=== PATIENT | female | born 1955 | race Caucasian/White ===

== ENCOUNTER 2017-12-24 12:30 | Inpatient (IN) | payer MEDICARE, MEDICAID ==
[~2017-12-24] VITALS: Ht 160 cm; Wt 75.3 kg
--- NOTE | ~2017-12-24 | PR ---
[place], [place] PROGRESS NOTE NAME: [facility]Z [facility]ERVANTES [facility] [id number] UNIT #: [id number] ROOM: 519 DOCTOR: ALEXANDR LATHAM MD,SELENA BIRTHDATE: [birth year] DOS: 12/28/2017 SUBJECTIVE: The patient noted comfortable at this time, resting, denies symptoms of chest pain, coughing, or sputum expectoration. She has not been noted any symptoms of fever or chills. Plan for possibility of discharge home today. The patient remains asymptomatic. OBJECTIVE: VITAL SIGNS: For the patient which has been recorded showed normal temperature, respiratory rate 20, heart rate 60-85, blood pressure 154/65. Pulse ox saturation on room air was 99% saturation. HEENT: Chronic obesity. NECK: Supple. CARDIOVASCULAR: S1, S2 audible. LUNGS: Clear. ABDOMEN: Soft, nontender. LABORATORY DATA: CT of the chest completed yesterday ordered by the attending was noted as normal study. CBC of the patient was noted normal today. The CMP of the patient was noted as normal. IMPRESSION: 1. Resolving shortness of breath. 2. Exacerbation of chronic obstructive pulmonary disease, responding to current treatment. 3. History of nicotine dependence. PLAN OF TREATMENT: The patient could be considered from discharge today on oral medications and outpatient follow up strongly suggested. The patient was encouraged absolute tobacco use and tobacco cessation was done. SELENA STRANGE MD CM:PNTRANS [id number] SELENA LATHAM MD 01/13/18 0834 interface
--- NOTE | ~2017-12-24 | EKG ---
[place], [place] ELECTROCARDIOGRAM REPORT NAME: TAZ CERVANTES UNIT #: [id number] ROOM: 519 DOCTOR: NATIVIDAD DRAFT REPORT BIRTHDATE: [birth year] [facility] Test Date: 2017-12-24 Test Time: 13:11:04 Pat Name: TAZ CERVANTES Department: Room: 519 Gender: F [employer]: : 1955 Requested By: JOEL GILES Order Number: [id number] Reading MD: Lencho Bryant MD Measurements Intervals [place] Rate: 103 P: 28 [place]: 143 QRS: -88 QRSD: 92 T: 52 QT: 361 QTc: 473 Interpretive Statements Sinus tachycardia Inferior infarct, old Lateral leads are also involved Electronically Signed On 12-29-2017 13:46:14 PDT by Lencho Bryant MD CM:EKGRPT:ELECTROCARDIOGRAM REPORT [id number] JOEL HENSON DRAFT REPORT JOEL REDMAN
--- NOTE | ~2017-12-24 | CON ---
[place], [place] REPORT OF CONSULTATION [id number] UNIT #: [id number] ROOM: 519 DOCTOR: LORE CHICAS MD BIRTHDATE: [birth year] DOS: 12/26/2017 CARDIOLOGY CONSULTATION REASON FOR CONSULTATION: Dyspnea, heart murmur and abnormal electrocardiogram. HISTORY OF PRESENT ILLNESS: The patient was seen at her bedside today, 12/26/2017, to evaluate complaints of worsening dyspnea. The patient is a 62-year-old woman who denies any previous history of heart disease. She does have risk factors of hypertension and a family history of coronary artery disease, but denies ever having a history of heart attack, stroke or chest pain. She does note that for the last several months, she has had worsening dyspnea on exertion. She has also complained of some dizziness, by which she does seem to mean true vertigo. Recently, she has had a flea infestation in her home. She has used multiple flea bombs without full success. Since she has been using these, she has noticed a dramatic increase in her dyspnea and therefore came to the Emergency Room on 12/24/2017 for evaluation. At that time, she complained of "not feeling right" and worsening dyspnea with decreased energy. On admission, she was noted to have an elevation in her lactic acid level. She was not anemic. Electrolytes were normal. Her troponin on admission was normal. A chest x-ray showed a normal cardiac silhouette without any evidence for infiltrates. Her electrocardiogram showed a right bundle-branch block and inferior Q-waves, so a Cardiology consultation was requested. PAST MEDICAL HISTORY: Includes: 1. Essential hypertension. 2. Chronic back pain with spinal stenosis. 3. History of urinary tract infections. 4. History of hysterectomy, tonsillectomy and cholecystectomy. 5. senior care and ongoing tobacco abuse. The patient currently smokes a half pack of cigarettes a day. MEDICATIONS PRIOR TO ADMISSION: Atorvastatin 20 mg daily, baclofen 20 mg t.i.d. as needed for back spasms, hydrochlorothiazide 12.5 mg daily, hydrocodone with acetaminophen q.i.d. p.r.n., lisinopril 10 mg daily and Lyrica 150 mg b.i.d. ALLERGIES: She lists allergies to BEE STINGS, PENICILLIN, AMOXICILLIN, ERYTHROMYCIN, LATEX, TETRACYCLINE and CEPHALEXIN. FAMILY HISTORY: The patient knows nothing about her father or his family's history. She states that many members of her mother's family have had heart disease. Her grandfather was apparently one of the first people to have bypass surgery and she states that he in his 40s, so apparently he did have heart disease at a young age. Her mother has "heart issues," but the patient does not know details. Her mother is still alive at age 79. There is no diabetes or stroke in the family. REVIEW OF SYSTEMS: The patient denies diplopia or loss of vision. She denies focal weakness. She has had "dizziness" which sounds like vertigo. She [place], [place] REPORT OF CONSULTATION NAME: TAZ CERVANTES UNIT #: [id number] ROOM: [facility] DOCTOR: LORE CHICAS MD BIRTHDATE: [birth year] denies fevers, chills, sweats or recent weight change. Her appetite has been poor. She does admit to lack of interest and anhedonia, poor appetite and depressed, feelings. She denies nausea or vomiting, but she has not had much of an appetite. She denies fevers, chills, sweats or recent weight change. She denies hemoptysis or hematemesis. She does have an occasional cough, which is nonproductive. She denies change in bowel or bladder habits. She denies blood in her stools or urine. She denies any skin rashes except for multiple flea bites on her lower extremities. She denies heat or cold intolerance and denies polyuria or polydipsia. Remainder of the review of systems is negative except as noted above. SOCIAL HISTORY: The patient lives alone. She does not consume alcohol. She does smoke a half pack of cigarettes a day. PHYSICAL EXAMINATION: GENERAL: The patient is a well-nourished white female who is awake, alert and oriented. VITAL SIGNS: Pulse is 80 and regular, blood pressure is 140/84. She is afebrile. She weighs 75.3 kilograms and has body mass index of 29.4. HEENT: Normocephalic and atraumatic. Extraocular muscles are intact. Sclerae are clear. Pupils equal, round and react to light. The oral mucosa is moist. Tongue is midline. NECK: Supple. She has no jugular distention or hepatojugular reflux. Carotids are full. There are no bruits. She has no neck or supraclavicular masses and no thyromegaly. LUNGS: Respirations are unlabored. Her chest is clear to auscultation and percussion. I heard no wheezes or rales. She had mild expiratory prolongation. She had no chest wall tenderness and no presacral edema. HEART: Had a regular rhythm. She had a soft fourth heart sound, but no third heart sound. She has a grade 2/6 systolic ejection murmur along the left sternal border, which radiates toward the base, but not into the neck. The second heart sound is well preserved. There are no apical murmurs and no diastolic murmurs. ABDOMEN: Obese, but otherwise benign, without masses, organomegaly, bruits or tenderness. EXTREMITIES: Showed no edema. She does have some excoriations on her feet. Pedal pulses are easily palpated bilaterally. RADIOLOGY: I reviewed her electrocardiogram, which showed sinus tachycardia with a right bundle-branch block and possible old inferior wall myocardial infarction along with poor precordial R-wave progression. I also reviewed her chest x-ray, which showed normal cardiac silhouette, no infiltrates and no vascular congestion. LABORATORY DATA: Hemoglobin is 14.9, white count 10,000, platelet count 269,000. Sodium 141, potassium 4.4, chloride 108, CO2 of 24, BUN 17, creatinine 0.7. Troponin was normal. TSH was normal. Total cholesterol is 147, HDL is 50, LDL is 78. IMPRESSION: [place], [place] REPORT OF CONSULTATION NAME: TAZ CERVANTES UNIT #: [id number] ROOM: [facility] DOCTOR: LORE CHICAS MD BIRTHDATE: [birth year] 1. Progressive dyspnea with recent exacerbation. The patient is a smoker and it is likely that this does represent chronic obstructive pulmonary disease with acute exacerbation, possibly brought on by inhaled insecticides. She shows no signs of an acute coronary event. 2. Cigarette abuse. 3. Heart murmur, which sounds benign. 4. Right bundle-branch block and possible inferior wall myocardial infarction on her electrocardiogram. PLAN: At this time, I think that it is most likely that her breathing is due to pulmonary problems. We will be checking an echocardiogram to look for wall motion abnormalities to see if there is any evidence for previous infarction. She does not have any chest pain or elevation in troponin and if her echocardiogram is normal, then I would suggest further pulmonary workup and aggressive pulmonary management along with immediate cigarette cessation. We will follow the patient with her other physicians and I thank the hospitalist doctors for asking our advice regarding her care. LORE CHICAS MD CM:CONSTR:REPORT OF CONSULTATION 1016 12/26/17 1648 interface
--- NOTE | ~2017-12-24 | CON ---
[place], [place] REPORT OF CONSULTATION NAME: TAZ CERVANTES [facility] #: [id number] UNIT #: [id number] ROOM: 519 DOCTOR: SELENA HANNON MD BIRTHDATE: [birth year] DOS: 12/27/2017 CONSULTATION REQUESTED BY: Hospitalist services. REASON FOR CONSULTATION: Recurrent symptoms of shortness of breath. HISTORY OF PRESENT ILLNESS: This is a 62-year-old white female patient, unknown to me from the past. The patient has been in hospital in 12/24/2017. She reported symptoms of increased shortness of breath, chest congestion. The cough has been noted nonproductive. She was also reported symptoms of wheezing and chest tightness. The patient denies any symptoms of fever or chills. The patient stated she had been exposed to some kind of chemicals as she bombed her apartment for the management of the fleas in the apartment. The patient reported symptoms of worsening of shortness of breath upon assessment in the Emergency Room and the patient was noted lactic acidosis on admission as well. She denies any symptoms of fever or chills. She has been currently treated for patient. Cardiology assessment was done for this patient as well early for the patient suggestive of pulmonary disease. The patient stated since hospitalization, she has been noted progressive resolution, reduction of respiratory symptoms, but symptom resolution was noted incomplete. She was also reported symptoms of fatigue on presentation. REVIEW OF SYSTEMS: CONSTITUTIONAL: Fatigue and tiredness noted symptoms of fever or chills. EYES: Denies burning, redness, or tenderness. EARS, NOSE, THROAT SYMPTOMS: Denies sore throat, hoarseness, otalgia, postnasal drainage or epistaxis. CARDIOVASCULAR: Denied angina pain, edema, pain in lower extremity. GASTROINTESTINAL: Dysphagia, nausea, vomiting, diarrhea, abdominal pain, hematemesis, melena, or hematochezia. GENITOURINARY: No dysuria, suprapubic pain, hematuria. MUSCULOSKELETAL: No acute joint pain, redness, tenderness. SKIN: No lesions or rashes. Remaining systems were reviewed. They were noted all negative. PAST MEDICAL HISTORY: 1. The patient with known history of chronic nicotine abuse. 2. Essential hypertension. 3. History of peripheral neuropathy. 4. Spinal stenosis. PAST SURGICAL HISTORY: 1. Reported. 2. Hysterectomy. 3. Tonsillectomy. 4. Cholecystectomy. SOCIAL HISTORY: The patient currently , has 2 children. Denies history of alcohol use, illicit drug use. Tobacco is noted with a pack of [place], [place] REPORT OF CONSULTATION NAME: TAZ CERVANTES UNIT #: [id number] ROOM: [facility] DOCTOR: ALEXANDR LATHAM MD,[facility] BIRTHDATE: [birth year] cigarettes a day previously, currently smoking half a pack of cigarettes, for the past several weeks this patient attempted to stop smoking of cigarettes per day. FAMILY HISTORY: The patient's father . Medical history unknown. Mother is living 79-year-old without any known medical illnesses. HOME MEDICATIONS: The patient, listed use of nortriptyline, Claritin, etodolac, gabapentin, Zanaflex and Effexor. The patient is also taking Macrodantin for the medical management. Recent urinary tract infection. DRUG ALLERGIES: Noted to have allergy that include: 1. PENICILLINS. 2. AZITHROMYCIN. 3. TETRACYCLINE. 4. KEFLEX. PHYSICAL EXAMINATION: GENERAL: This is a 62-year-old white female patient who has been currently noted awake and alert this morning, sitting on the bed. VITAL SIGNS: Height 5 feet 3 inches, weight 166 pounds, which has been recorded showed the temperature noted normal since admission, respiratory rate range between 18-20, heart rate of 87-70, blood pressure 140-180 to 155/91. Pulse oxygen saturation on room air was 95% saturation. HEENT: Head was atraumatic. Eyes nonicterus. NECK: Supple. CARDIOVASCULAR: S1, S2 is audible. LUNGS: Noted clear to auscultation this morning. ABDOMEN: Soft, nontender, bowel sounds present. EXTREMITIES: Without any acute edema. LABORATORY DATA: The patient's CMP today were noted normal BUN and creatinine. The CBC of patient noted normal. The chest x-ray, 2-view, done for this patient on 12/25/2017 were normal. Admission from the emergency room was also noted normal. Blood culture, no bacterial growth. IMPRESSION: The patient who has been noted with current acute exacerbation of chronic obstructive pulmonary disease, possibly new onset. History of tobacco use, possibly exacerbated by some chemical patient at home can be completely excluded by the predominant cause most likely be considered. He has a tobacco use, resulting in acute exacerbation. There were no signs of acute bacterial infection. PLAN OF MANAGEMENT: The patient could be considered home discharge, tapering dose of prednisone may not require any antibiotics. Bronchodilators should be administered. Counseling about tobacco cessation done in detail for the patient. Outpatient assessment suggested post-discharge for comprehensive assessment of chronic obstructive pulmonary disease. [place], [place] REPORT OF CONSULTATION NAME: TAZ CERVANTES UNIT #: [id number] ROOM: [facility] DOCTOR: SELENA HANNON MD BIRTHDATE: [birth year] SELENA STRANGE MD CM:CONSTR:REPORT OF CONSULTATION 1504 01/13/18 0833 interface
--- NOTE | ~2017-12-24 | CON ---
[place], [place] REPORT OF CONSULTATION NAME: TAZ CERVANTES [facility] #: [id number] UNIT #: [id number] ROOM: 519 DOCTOR: PHD [place] HERNAN BIRTHDATE: [birth year] DOS: 12/25/2017 HISTORY OF PRESENT ILLNESS: The patient is a 62-year-old female referred by the hospitalist with concerns for depression. She had 3 kittens following a flea infestation and treatment at her home. At the present time, the patient is on the 5th floor at [facility]. SOCIAL HISTORY: The patient is and lives alone. She has 3 daughters. Her son in his 20s due to diabetes. 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 She denied alcohol and illegal drug use. Tobacco use was reported as 1 pack per day. PAST MEDICAL HISTORY: Hypertension, neuropathy, spinal stenosis. MEDICATIONS: Antivert, Esidrix, Zestril, Nicoderm, Solu-Medrol, Lovenox, Lipitor, Lioresal, DuoNeb, Zofran, Lyrica, Wyn[place]. PHYSICAL EXAMINATION: The patient was lying comfortably in bed, in no apparent distress. She was awake, alert and oriented. Eye contact and social skills were appropriate. She was cooperative with evaluation. The patient reported grief over the loss of her 3 kittens. Mood was depressed and affect was tearful. She firmly denied suicidal ideation, plan, and intent. She states that she had been doing relatively well emotionally prior to this and has a close relationship with one of her daughters who lives in town. Speech was within normal limits with respect to rhythm, rate, volume and tone. Expressive and receptive language appeared within normal limits on a conversational basis. Thought process and content were within normal limits. Insight and judgment appeared fair. Discussed the patient's thoughts and interpretations of the events leading to the kittens , utilized CBT and supportive therapy interventions. The patient appeared to benefit. She stated that she did not think she needs to follow up with psychotherapy as an outpatient. DIAGNOSIS: Major depressive disorder, recurrent, unspecified. RECOMMENDATIONS: The patient would likely benefit from individual counseling as an outpatient. However, the patient stated she is not interested at this time. Thank you very much for this consult. [place], [place] REPORT OF CONSULTATION NAME: TAZ CERVANTES UNIT #: [id number] ROOM: 519 DOCTOR: [place], PHD HERNAN BIRTHDATE: [birth year] Ngoc Saldaña, PhD CM:CONSTR:REPORT OF CONSULTATION 1755 12/25/17 2147 interface
[~2017-12-24 12:30] MED LIST: CLARITIN10 MG PO; EFFEXOR XR75 M1 PO; FLEXERIL5 MG PO; HYDROCODONE BIT1 T11 PO; HYDROXYYZINE PA25 MG PO; LODINE XL 400M400 MG PO; LYRICA50 MG PO; MACRODANTIN100 M1 PO; MOBIC7.5 MG PO; NEURONTIN300 MG PO; NORTRIPTYLINE10 MG PO; PREDNISONE20 MG PO; SIMVASTATIN20 MG PO; TRAMADOL HCL50 MG PO; TRAMADOL HYDROC50 MG PO; ZANAFLEX4 M1 PO
[2017-12-24 12:33] VITALS: BP 185/114
[2017-12-24 13:23] LABS: BASO % 0.3 % (0.0-1.0); EOS % 0.2 % (1.0-4.0); HEMATOCRIT 47.5 % (37.0-47.0); HEMOGLOBIN 15.9 g/dl (12.0-16.0); LYMPH # 2.5 10*3/uL (1.3-4.4); LYMPH % 27.6 % (27.0-41.0); MEAN CELL VOLUME 91.2 fl (81.0-99.0); MEAN CORPUSCULAR HGB 30.5 pg (27.0-31.0); MEAN CORPUSCULAR HGB CONC 33.5 g/dl (33.0-37.0); MEAN PLATELET VOLUME 10.4 fl (9.6-12.3); MONO # 0.5 10*3/uL (0.1-1.0); NEUT # 6.1 10*3/uL (2.3-7.9); NEUT % 66.7 % (47.0-73.0); PLATELET COUNT AUTOMATED 329 10*3/uL (130-400); RED BLOOD COUNT 5.21 10*6/uL (4.10-5.10); RED CELL DISTRI WIDTH 15.2 % (0-14.5); WHITE BLOOD COUNT 9.2 10*3/uL (4.8-10.8)
[2017-12-24 13:32] LABS: ACT PARTIAL THROMBO TIME 24.1 SECONDS (20.8-31.5); INTERNATIONAL NORM RATIO 0.9 (2.0-3.5)
[2017-12-24 13:42] LABS: ALBUMIN 3.9 gm/dl (3.1-4.5); ALKALINE PHOSPHATASE 95 U/L (45-117); BUN 15 mg/dl (7-24); CHLORIDE 107 mmol/L (98-107); CREATININE 0.86 mg/dL (0.55-1.02); LIPASE 131 U/L (73-393); POTASSIUM 3.5 mmol/L (3.5-5.1); SGOT/AST 18 IU/L (3-35); SGPT/ALT 20 U/L (12-78); SODIUM 142 mmol/L (136-145); TROPONIN I < 0.015 ng/ml (<0.045)
[2017-12-24 14:07] LABS: BILIRUBIN NEGATIVE (NEGATIVE); BLOOD TRACE-INTACT (NEGATIVE); CLARITY CLEAR (CLEAR); COLOR YELLOW (YELLOW); GLUCOSE NEGATIVE (NEGATIVE); KETONE NEGATIVE (NEGATIVE); LEUKO ESTERASE NEGATIVE (NEGATIVE); NITRITE NEGATIVE (NEGATIVE); SPECIFIC GRAVITY 1.025 (1.005-1.030); UROBILINOGEN 0.2 E.U./dl (0.2-1.0)
[2017-12-24 14:26] LABS: BACTERIA 2+; EPITHELIAL CELLS 0-2
[2017-12-24 16:45] VITALS: BP 140/80
[2017-12-24] MEDS ORDERED: NORCO 10-325 T1 EACH PO (17:56)
[2017-12-24] MEDS ORDERED: LYRICA150 M1 PO (17:56)
[2017-12-24] MEDS ORDERED: BACLOFEN20 M1 PO (17:57)
[2017-12-24] MEDS ORDERED: LIPITOR20 MG PO (17:57)
[2017-12-24] MEDS ORDERED: PRINIVIL10 MG PO (17:58)
[2017-12-24] MEDS ORDERED: HYDROCHLOROTH12.5 M3 PO (17:59)
[2017-12-24 20:00] VITALS: BP 164/90
[2017-12-25 07:16] LABS: BASO % 0.1 % (0.0-1.0); HEMOGLOBIN 14.9 g/dl (12.0-16.0); LYMPH # 2.1 10*3/uL (1.3-4.4); LYMPH % 20.7 % (27.0-41.0); MEAN CELL VOLUME 91.1 fl (81.0-99.0); MEAN CORPUSCULAR HGB 30.2 pg (27.0-31.0); MEAN CORPUSCULAR HGB CONC 33.1 g/dl (33.0-37.0); MEAN PLATELET VOLUME 11.2 fl (9.6-12.3); MONO # 0.3 10*3/uL (0.1-1.0); MONO % 2.6 % (3.0-9.0); NEUT # 7.6 10*3/uL (2.3-7.9); NEUT % 76.1 % (47.0-73.0); PLATELET COUNT AUTOMATED 269 10*3/uL (130-400); RED BLOOD COUNT 4.94 10*6/uL (4.10-5.10)
[2017-12-25 07:19] LABS: ALBUMIN 3.3 gm/dl (3.1-4.5); BUN 17 mg/dl (7-24); CHLORIDE 108 mmol/L (98-107); CHOLESTEROL 147 mg/dL (<200); POTASSIUM 4.4 mmol/L (3.5-5.1); SODIUM 141 mmol/L (136-145); TRIGLYCERIDES 94 mg/dl (<150); VLDL CHOLESTEROL 19 mg/dL (6-40)
[2017-12-25 07:27] LABS: ALKALINE PHOSPHATASE 83 U/L (45-117); FREE T4 1.09 ng/dl (0.76-1.46); HDL CHOLESTEROL 50 mg/dl (40-60); LDL CHOLESTEROL 78 mg/dL (9-159); PHOSPHOROUS 3.7 mg/dL (2.5-4.9); SGOT/AST 25 IU/L (3-35); SGPT/ALT 20 U/L (12-78); THYROID STIM HORMONE (HS) 0.432 uIU/ml (0.358-4.75); TOTAL PROTEIN 7.2 gm/dL (6.4-8.2)
[2017-12-25 07:54] LABS: VITAMIN D, 25-HYDROXY 19.6 ng/mL (30-100)
[2017-12-25 08:00] VITALS: BP 146/84
[2017-12-25 12:00] VITALS: BP 140/80
[2017-12-25 16:00] VITALS: BP 138/87
[2017-12-25 20:00] VITALS: BP 126/88
[2017-12-26] VITALS: BP 140/80
[2017-12-26 08:00] VITALS: BP 140/84
[2017-12-26 12:00] VITALS: BP 132/81
[2017-12-26 16:00] VITALS: BP 142/79
[2017-12-26 20:00] VITALS: BP 142/82
[2017-12-27] VITALS: BP 142/80; BP 142/90
[2017-12-27 06:37] LABS: BASO % 0.1 % (0.0-1.0); EOS % 0.1 % (1.0-4.0); HEMATOCRIT 43.1 % (37.0-47.0); HEMOGLOBIN 14.1 g/dl (12.0-16.0); LYMPH % 20.4 % (27.0-41.0); MEAN CELL VOLUME 91.3 fl (81.0-99.0); MEAN CORPUSCULAR HGB 29.9 pg (27.0-31.0); MEAN CORPUSCULAR HGB CONC 32.7 g/dl (33.0-37.0); MEAN PLATELET VOLUME 10.6 fl (9.6-12.3); MONO # 0.3 10*3/uL (0.1-1.0); NEUT # 7.5 10*3/uL (2.3-7.9); NEUT % 75.9 % (47.0-73.0); PLATELET COUNT AUTOMATED 266 10*3/uL (130-400); RED BLOOD COUNT 4.72 10*6/uL (4.10-5.10); RED CELL DISTRI WIDTH 14.9 % (0-14.5); WHITE BLOOD COUNT 9.9 10*3/uL (4.8-10.8)
[2017-12-27 06:49] LABS: ALBUMIN 3.3 gm/dl (3.1-4.5); ALKALINE PHOSPHATASE 80 U/L (45-117); BUN 23 mg/dl (7-24); CHLORIDE 107 mmol/L (98-107); CREATININE 0.82 mg/dL (0.55-1.02); SGOT/AST 13 IU/L (3-35); SGPT/ALT 20 U/L (12-78); SODIUM 143 mmol/L (136-145); TOTAL PROTEIN 6.7 gm/dL (6.4-8.2)
[2017-12-27 08:00] VITALS: BP 156/88
[2017-12-27 12:00] VITALS: BP 155/91
[2017-12-27 16:00] VITALS: BP 138/76
[2017-12-27 20:00] VITALS: BP 146/83
[2017-12-28] VITALS: BP 129/77
[2017-12-28 07:09] LABS: HEMATOCRIT 42.7 % (37.0-47.0); HEMOGLOBIN 13.9 g/dl (12.0-16.0); LYMPH % 21.2 % (27.0-41.0); MEAN CELL VOLUME 91.4 fl (81.0-99.0); MEAN CORPUSCULAR HGB 29.8 pg (27.0-31.0); MEAN CORPUSCULAR HGB CONC 32.6 g/dl (33.0-37.0); MEAN PLATELET VOLUME 10.4 fl (9.6-12.3); MONO # 0.4 10*3/uL (0.1-1.0); MONO % 4.1 % (3.0-9.0); NEUT % 73.9 % (47.0-73.0); PLATELET COUNT AUTOMATED 272 10*3/uL (130-400); RED BLOOD COUNT 4.67 10*6/uL (4.10-5.10); RED CELL DISTRI WIDTH 15.1 % (0-14.5); WHITE BLOOD COUNT 9.4 10*3/uL (4.8-10.8)
[2017-12-28 07:27] LABS: ALBUMIN 3.1 gm/dl (3.1-4.5); ALKALINE PHOSPHATASE 78 U/L (45-117); BUN 21 mg/dl (7-24); CHLORIDE 107 mmol/L (98-107); CREATININE 0.76 mg/dL (0.55-1.02); POTASSIUM 4.4 mmol/L (3.5-5.1); SGOT/AST 9 IU/L (3-35); SGPT/ALT 17 U/L (12-78); SODIUM 144 mmol/L (136-145); TOTAL PROTEIN 6.6 gm/dL (6.4-8.2)
[2017-12-28 08:00] VITALS: BP 152/65
[2017-12-28] MEDS ORDERED: PREDNISONE10 MG PO (11:49)
[2017-12-28] MEDS ORDERED: PROAIR HFA8.5 GM INH (11:49)
[2017-12-28] MEDS ORDERED: Meclizine25 MG PO (11:49)
[2017-12-28] MEDS ORDERED: AMLODIPINE BESYL5 MG PO (11:49)
[2017-12-28 12:00] VITALS: BP 154/65
== END 2017-12-28 13:27 | disposition home or self-care (01) | DRG 206 ==
LOC: ED 12:30 → EDHOLD 14:57 → 5E 14:57
PROVIDERS: Emergency Medicine; Physician Assistant; Registered Nurse
DX: J68.0 Bronchitis and pneumonitis due to chemicals, gases, fumes and vapors (principal); E87.2 Acidosis; F33.9 Major depressive disorder, recurrent, unspecified; E83.41 Hypermagnesemia; I10 Essential (primary) hypertension; G62.9 Polyneuropathy, unspecified; M54.9 Dorsalgia, unspecified; G89.29 Other chronic pain; M48.00 Spinal stenosis, site unspecified; R73.9 Hyperglycemia, unspecified; R01.1 Cardiac murmur, unspecified; R09.89 Other specified symptoms and signs involving the circulatory and respiratory systems; R00.0 Tachycardia, unspecified; I45.10 Unspecified right bundle-branch block; E66.8 Other obesity; E78.5 Hyperlipidemia, unspecified; Z60.2 Problems related to living alone; I25.2 Old myocardial infarction; Z88.0 Allergy status to penicillin; Z91.030 Bee allergy status; Z91.040 Latex allergy status; Z72.0 Tobacco use; Z71.6 Tobacco abuse counseling; Z88.8 Allergy status to other drugs, medicaments and biological substances; Z79.899 Other long term (current) drug therapy; Z90.710 Acquired absence of both cervix and uterus; Z90.49 Acquired absence of other specified parts of digestive tract; Z98.51 Tubal ligation status; Z87.440 Personal history of urinary (tract) infections; Z90.89 Acquired absence of other organs; Z82.49 Family history of ischemic heart disease and other diseases of the circulatory system; Z83.3 Family history of diabetes mellitus; Z68.26 Body mass index [BMI] 26.0-26.9, adult

== ENCOUNTER 2018-03-15 17:15 | Inpatient (IN) | payer OTHER ==
[~2018-03-15] VITALS: Ht 160 cm; Wt 79.8 kg
--- NOTE | ~2018-03-15 | EKG ---
[place], [place] ELECTROCARDIOGRAM REPORT NAME: TAZ CERVANTES UNIT #: [id number] ROOM: 405 DOCTOR: NATIVIDAD DRAFT REPORT BIRTHDATE: [birth year] [facility] Test Date: 2018-03-15 Test Time: 17:58:32 Pat Name: TAZ CERVANTES Department: Room: 405 Gender: F Attorney: Lin Marcus : 1955 Requested By: ALETA WELLS PA-C Order Number: [id number] Reading MD: Frantz Mercedes MD Measurements Intervals [place] Rate: 95 P: 33 [place]: 146 QRS: -74 QRSD: 120 T: 55 QT: 393 QTc: 494 Interpretive Statements Sinus rhythm IVCD, consider atypical RBBB Inferior infarct, old Compared to ECG 12/24/2017 13:11:04 Sinus tachycardia no longer present Myocardial infarct finding still present No significant change Electronically Signed On 03-16-2018 14:43:55 PST by Frantz Mercedes MD CM:EKGRPT:ELECTROCARDIOGRAM REPORT 1758 [id number] ALETA WELLS PA-C EPIPHANY DRAFT REPORT ALETA WELLS PA-C
--- NOTE | ~2018-03-15 | PR ---
[place], [place] PROGRESS NOTE NAME: [id number] UN[facility] #: [id number] ROOM: 405 DOCTOR: ALEXANDR LATHAM MD,SELENA BIRTHDATE: [birth year] DOS: 03/18/2018 SUBJECTIVE: She has been noted comfortable at this time. Reduction in respiratory symptoms of wheezing, cough has been slowly continued. The resolution was not noted complete, but significant improvement occurred since hospitalization. The patient denies any symptoms of chest pain. OBJECTIVE: VITAL SIGNS: Normal temperature, respiratory rate 16, heart rate 92, blood pressure 132/94. Pulse oxygen saturation on room air was 93% saturation. HEENT: Examination shows no acute change. NECK: Supple. CARDIOVASCULAR: S1, S2 is audible. LUNGS: The patient was noted with occasional wheezing, no crackles. ABDOMEN: Soft, nontender. Bowel sounds present. EXTREMITIES: No acute edema. LABORATORY DATA: Culture of the sputum shows normal yue, final culture results pending. IMPRESSION: The patient is improving acute exacerbation of chronic obstructive pulmonary disease, acute tracheobronchitis gradually with current plan of management. PLAN OF TREATMENT: No changes in the plan of care at this time. Continue current therapy, plan of management, treatment and other therapies as previously. SELENA STRANGE MD CM:PNTRANS 1234 [id number] SELENA LATHAM MD 03/30/18 0846 interface
--- NOTE | ~2018-03-15 | CON ---
[place], [place] REPORT OF CONSULTATION NAME: TAZ CERVANTES UNIT #: [id number] ROOM: 405 DOCTOR: ALEXANDR LATHAM MD,SELENA BIRTHDATE: [birth year] DOS: 03/16/2018 PULMONARY CONSULTATION, EVALUATION, AND MANAGEMENT REASON FOR CONSULTATION: Assess the patient's current acute symptoms of shortness of breath, coughing, and others. CONSULTATION REQUESTED BY: Brenda Kim from the hospitalist services. HISTORY OF PRESENT ILLNESS: This is a 62-year-old white female who has been known to me from past hospitalization in December 2017. She had been treated at that time for acute exacerbation of COPD and acute bronchitis. The patient had shown resolution of symptoms and noted with the current acute respiratory symptoms development in the past 4-5 days. The symptoms started with coughing, chest congestion with small to moderate amount of thick purulent sputum expectoration. Denies any hemoptysis with that. Wheezing was reported. There were no symptoms of chest pain. She has been assessed in the Emergency Room, currently admitted to the hospital for the medical management of recurrence of acute exacerbation of chronic obstructive pulmonary disease. REVIEW OF SYSTEMS: CONSTITUTIONAL: She does report symptoms of fatigue, but there was no fever or chills reported. EYES: Denies any burning, redness, or tenderness. EARS, NOSE, THROAT SYMPTOMS: Denies sore throat, hoarseness, otalgia, postnasal drainage, or epistaxis. CARDIOVASCULAR: Denies anginal pain, edema or pain of the lower extremities, dysphagia, abnormal weight loss, or hematochezia. GENITOURINARY: Denies any suprapubic pain, hematuria, dysuria, or urinary incontinence. MUSCULOSKELETAL: No acute joint pain or deformities. SKIN: Denies any lesions or rashes. CENTRAL NERVOUS SYSTEM: Denies dizziness, headache, diplopia, syncopal episodes, or seizures. Remaining systems were reviewed, they were noted all negative. PAST MEDICAL HISTORY: 1. COPD. 2. Spinal stenosis. 3. Nicotine dependence. 4. Essential hypertension. 5. Peripheral neuropathy. PAST SURGICAL HISTORY: 1. Appendectomy. 2. Hysterectomy. 3. Tonsillectomy. 4. Cholecystectomy. [place], [place] REPORT OF CONSULTATION NAME: TAZ CERVANTES UNIT #: [id number] ROOM: 405 DOCTOR: ALEXANDR LATHAM MD,SELENA BIRTHDATE: [birth year] SOCIAL HISTORY: The patient is . She has 2 children. Denies any history of illicit drug use or alcohol administration. Tobacco use is noted since teenager, about a half to a pack of cigarettes per day with intermittent tobacco cessation reported. FAMILY HISTORY: Father passed from unknown medical illnesses. Mother is living without any known medical illnesses. MEDICATIONS: The current medications administrated are use of sliding insulin coverage, Solu-Medrol 40 mg b.i.d., Lovenox for DVT prophylaxis, meclizine, baclofen, Mucinex, DuoNeb, and vitamin D. DRUG ALLERGIES: THE PATIENT IS NOTED ALLERGIES TO: 1. PENICILLIN. 2. KEFLEX. 3. TETRACYCLINE. 4. ERYTHROMYCIN. 5. AMOXICILLIN. PHYSICAL EXAMINATION: GENERAL: A 62-year-old female who has been currently sitting on the bed during this morning of assessment without any acute distress. Height of 5 feet 3 inches, weight of 176 pounds, BMI of 31. VITAL SIGNS: Normal temperature, respiratory rate of 14-16, heart rate 99-96, blood pressure 108-52 to 133/62. Pulse oxygen saturation on room air at rest was 95% saturation. HEENT: Head was atraumatic. Eyes nonicterus. NECK: Supple. CARDIOVASCULAR: S1 and S2 audible. LUNGS: Mild to moderate decreased breath sounds, mild expiratory wheezing. No crackles. ABDOMEN: Soft, obese, nontender. Bowel sounds present. EXTREMITIES: No acute edema. MUSCULOSKELETAL: Without any acute deformity. SKIN: No lesions or rashes. LABORATORY AND DIAGNOSTIC DATA: CBC from 03/15/2018, yesterday, WBC count 14.7, hemoglobin and hematocrit were normal. PT/INR of 03/15/2018 was normal. CMP of 03/15/2018, normal BUN and creatinine. Albumin is 3.0. Normal troponin. Influenza A and B nasal washing antigens were negative. PT and PTT of this morning normal. CBC of this morning, WBC count 11.6, hemoglobin 11.4, platelet count was normal. CMP this morning, glucose 152, BUN and creatinine were normal. Chest x-ray, 2-view, which was done in the emergency room, reviewed from the PACS images was noted without any acute abnormalities. IMPRESSION: 1. The patient has been currently admitted to the hospital. She is noted with ongoing acute exacerbation of chronic obstructive pulmonary disease with acute bronchitis at the present time, most likely bacterial in origin. 2. Nicotine dependence noted previously. [place], [place] REPORT OF CONSULTATION NAME: TAZ CERVANTES UNIT #: [id number] ROOM: 405 DOCTOR: ALEXANDR LATHAM MD,SELENA BIRTHDATE: [birth year] 3. Moderate obesity. PLAN OF THERAPY: Continuation of bronchodilators, oxygen supplementation, and corticosteroid at the current dose. Has mild steroid-induced hyperglycemia, which has been treated with insulin coverage. Ordering the patient's sputum for Gram stain and culture. Bronchodilators are to be continued. We will start the patient on oral doxycycline. She had been noted allergic to multiple antibiotics in the past of many classes. Usual care, other supportive therapy, plan of management, and other treatment and plan of management. Additional treatment changes will be made for the patient based on the progression of the illness. We will start the patient on nicotine replacement patches to overcome the nicotine withdrawal. Thank you for allowing me to participate in the care of this patient. SELENA STRANGE MD CM:CONSTR:REPORT OF CONSULTATION 1318 03/17/18 0010 interface
--- NOTE | ~2018-03-15 | PR ---
[place], [place] PROGRESS NOTE [id number] UNIT #: [id number] ROOM: 405 DOCTOR: ALEXANDR LATHAM MD,SELENA BIRTHDATE: [birth year] DOS: 03/17/2018 SUBJECTIVE: She has been not feeling that well. The patient this morning she was noted with some symptoms of shortness of breath. Cough was noted without sputum expectoration. No symptoms of fever or chills. OBJECTIVE: VITAL SIGNS: Normal temperature, respiratory rate 20, heart rate 92, blood pressure 107/63. Pulse oxygen saturation recorded on room air is 94% saturation. HEENT: Examination shows head was atraumatic. Eyes nonicterus. NECK: Supple. CARDIOVASCULAR: S1, S2 is audible. LUNGS: The patient was noted without any wheezing or crackles at the present time. Breaths are noted diminished in the lungs bilaterally. ABDOMEN: Soft and nontender. Bowel sounds present. EXTREMITIES: No acute edema. LABORATORY DATA: Blood cultures, no bacterial growth. Urine culture noted with heavy growth of Escherichia coli. IMPRESSION: 1. The patient who has been currently noted with acute exacerbation of chronic obstructive pulmonary disease, acute bronchitis. 2. Question of urinary tract infection versus colonization. PLAN OF THERAPY: No changes in plan of care at this time. Continue the patient's current treatment therapy, plan of management, care plan of treatment and other therapies. SELENA STRANGE MD CM:PNTRANS [id number] SELENA LATHAM MD 03/17/18 1441 interface
[~2018-03-15 17:15] MED LIST changes: +AMLODIPINE BESYL5 MG PO; +BACLOFEN20 M1 PO; +HYDROCHLOROTH12.5 M3 PO; +LIPITOR20 MG PO; +LYRICA150 M1 PO; +Meclizine25 MG PO; +NORCO 10-325 T1 EACH PO; +PREDNISONE10 MG PO; +PRINIVIL10 MG PO; +PROAIR HFA8.5 GM INH
[2018-03-15 17:16] VITALS: BP 114/72
[2018-03-15 18:14] LABS: BASO # 0.1 10*3/uL (0.0-0.1); BASO % 0.3 % (0.0-1.0); EOS # 0.1 10*3/uL (0.0-0.4); EOS % 0.5 % (1.0-4.0); HEMATOCRIT 37.9 % (37.0-47.0); LYMPH # 2.6 10*3/uL (1.3-4.4); LYMPH % 17.5 % (27.0-41.0); MEAN CELL VOLUME 90.7 fl (81.0-99.0); MEAN CORPUSCULAR HGB 31.1 pg (27.0-31.0); MEAN CORPUSCULAR HGB CONC 34.3 g/dl (33.0-37.0); MONO # 1.1 10*3/uL (0.1-1.0); MONO % 7.4 % (3.0-9.0); NEUT # 10.8 10*3/uL (2.3-7.9); NEUT % 73.4 % (47.0-73.0); PLATELET COUNT AUTOMATED 419 10*3/uL (130-400); RED BLOOD COUNT 4.18 10*6/uL (4.10-5.10); RED CELL DISTRI WIDTH 14.7 % (0-14.5); WHITE BLOOD COUNT 14.7 10*3/uL (4.8-10.8)
[2018-03-15 18:14] LABS: ALKALINE PHOSPHATASE 114 U/L (45-117); BUN 21 mg/dl (7-24); CHLORIDE 105 mmol/L (98-107); CREATININE 0.95 mg/dL (0.55-1.02); SGOT/AST 18 IU/L (3-35); SGPT/ALT 27 U/L (12-78); SODIUM 141 mmol/L (136-145); TOTAL PROTEIN 6.8 gm/dL (6.4-8.2)
[2018-03-15 18:24] LABS: TROPONIN I < 0.015 ng/ml (<0.045)
[2018-03-15 18:33] LABS: BILIRUBIN NEGATIVE (NEGATIVE); BLOOD TRACE-INTACT (NEGATIVE); CLARITY CLOUDY (CLEAR); COLOR YELLOW (YELLOW); GLUCOSE NEGATIVE (NEGATIVE); KETONE NEGATIVE (NEGATIVE); LEUKO ESTERASE 3+ (NEGATIVE); NITRITE POSITIVE (NEGATIVE); UROBILINOGEN 0.2 E.U./dl (0.2-1.0)
[2018-03-15 18:39] LABS: BACTERIA 4+; WBC 51-100 wbc/hpf (0-5)
[2018-03-15 20:53] VITALS: BP 133/62
[2018-03-15 21:30] VITALS: BP 112/59
[2018-03-15] MEDS ORDERED: DULE1ARO INH (21:37)
[2018-03-15] MEDS ORDERED: Meclizine25 MG PO (22:12)
[2018-03-16] VITALS: BP 108/52
[2018-03-16 06:38] LABS: BASO % 0.2 % (0.0-1.0); HEMATOCRIT 34.4 % (37.0-47.0); HEMOGLOBIN 11.4 g/dl (12.0-16.0); LYMPH # 1.6 10*3/uL (1.3-4.4); LYMPH % 13.6 % (27.0-41.0); MEAN CELL VOLUME 92.2 fl (81.0-99.0); MEAN CORPUSCULAR HGB 30.6 pg (27.0-31.0); MEAN CORPUSCULAR HGB CONC 33.1 g/dl (33.0-37.0); MONO # 0.2 10*3/uL (0.1-1.0); MONO % 1.8 % (3.0-9.0); NEUT # 9.7 10*3/uL (2.3-7.9); NEUT % 83.3 % (47.0-73.0); PLATELET COUNT AUTOMATED 399 10*3/uL (130-400); RED BLOOD COUNT 3.73 10*6/uL (4.10-5.10); RED CELL DISTRI WIDTH 14.7 % (0-14.5); WHITE BLOOD COUNT 11.6 10*3/uL (4.8-10.8)
[2018-03-16 07:09] LABS: ALBUMIN 2.3 gm/dl (3.1-4.5); BUN 16 mg/dl (7-24); CHLORIDE 108 mmol/L (98-107); POTASSIUM 4.1 mmol/L (3.5-5.1); SODIUM 141 mmol/L (136-145)
[2018-03-16 07:23] LABS: ALKALINE PHOSPHATASE 87 U/L (45-117); CHOLESTEROL 126 mg/dL (<200); FREE T4 1.28 ng/dl (0.76-1.46); HDL CHOLESTEROL 32 mg/dl (40-60); LDL CHOLESTEROL 76 mg/dL (9-159); PHOSPHOROUS 2.8 mg/dL (2.5-4.9); SGOT/AST 9 IU/L (3-35); SGPT/ALT 19 U/L (12-78); THYROID STIM HORMONE (HS) 0.157 uIU/ml (0.358-4.75); TOTAL PROTEIN 6.6 gm/dL (6.4-8.2); TRIGLYCERIDES 88 mg/dl (<150); VLDL CHOLESTEROL 18 mg/dL (6-40)
[2018-03-16 09:35] LABS: VITAMIN D, 25-HYDROXY 32.4 ng/mL (30-100)
[2018-03-16 12:00] VITALS: BP 107/54
[2018-03-16 16:00] VITALS: BP 102/60
[2018-03-16 20:00] VITALS: BP 100/57
[2018-03-17] VITALS: BP 107/63
[2018-03-17 08:00] VITALS: BP 122/70
[2018-03-17 12:00] VITALS: BP 106/63
[2018-03-17 16:00] VITALS: BP 116/62
[2018-03-17 20:00] VITALS: BP 110/61
[2018-03-18] VITALS: BP 110/60
[2018-03-18 08:01] VITALS: BP 132/84
[2018-03-18] MEDS ORDERED: PREDNISONE10 MG PO (09:01)
[2018-03-18] MEDS ORDERED: LEVAQUIN750 M1 PO (09:01)
[2018-03-18] MEDS ORDERED: DOXYCYCLINE MO100 M1 PO (09:02)
[2018-03-18] MEDS ORDERED: Nystatin 100,000 UNI PO (09:05)
== END 2018-03-18 10:17 | disposition home or self-care (01) | DRG 871 ==
LOC: ED 17:15 → EDHOLD 19:45 → 4E 19:45 → EDHOLD 20:04 → 4E 20:37
PROVIDERS: Family Medicine; Physician Assistant; ADMIT Internal Medicine
DX: A41.9 Sepsis, unspecified organism (principal); E43 Unspecified severe protein-calorie malnutrition; J44.1 Chronic obstructive pulmonary disease with (acute) exacerbation; N30.01 Acute cystitis with hematuria; I50.30 Unspecified diastolic (congestive) heart failure; B37.0 Candidal stomatitis; R65.20 Severe sepsis without septic shock; E87.8 Other disorders of electrolyte and fluid balance, not elsewhere classified; F17.200 Nicotine dependence, unspecified, uncomplicated; G89.29 Other chronic pain; I11.0 Hypertensive heart disease with heart failure; J20.9 Acute bronchitis, unspecified; E66.8 Other obesity; M48.00 Spinal stenosis, site unspecified; F32.9 Major depressive disorder, single episode, unspecified; E55.9 Vitamin D deficiency, unspecified; E11.42 Type 2 diabetes mellitus with diabetic polyneuropathy; Z79.4 Long term (current) use of insulin; Z71.6 Tobacco abuse counseling; Z88.0 Allergy status to penicillin; Z88.1 Allergy status to other antibiotic agents; Z91.030 Bee allergy status; Z91.040 Latex allergy status; Z91.09 Other allergy status, other than to drugs and biological substances; Z90.710 Acquired absence of both cervix and uterus; Z90.49 Acquired absence of other specified parts of digestive tract; Z68.31 Body mass index [BMI] 31.0-31.9, adult

== ENCOUNTER → 2018-03-24 | Outpatient (CLI) | payer OTHER ==
[~2018-03-24] MED LIST changes: +AVPAK AZITHROM250 MG PO; +DOXYCYCLINE MO100 M1 PO; +DULE1ARO INH; +LEVAQUIN750 M1 PO; +MUCINEX1200 M1 PO; +Nystatin 100,000 UNI PO; +PREDNISONE50 MG PO; +ZOFRAN4 MG PO
== END | disposition home or self-care (01) ==
LOC: RESCLI 02:15
DX: J44.9 Chronic obstructive pulmonary disease, unspecified (principal); I10 Essential (primary) hypertension; M54.40 Lumbago with sciatica, unspecified side; G89.29 Other chronic pain; M48.061 Spinal stenosis, lumbar region without neurogenic claudication; G62.9 Polyneuropathy, unspecified; M81.0 Age-related osteoporosis without current pathological fracture; R42 Dizziness and giddiness; R73.03 Prediabetes; R00.1 Bradycardia, unspecified; F17.210 Nicotine dependence, cigarettes, uncomplicated; Z90.49 Acquired absence of other specified parts of digestive tract; Z90.710 Acquired absence of both cervix and uterus; Z88.2 Allergy status to sulfonamides

== ENCOUNTER → 2018-04-22 | Outpatient (CLI) | payer OTHER ==
--- NOTE | ~2018-04-22 | EEG ---
[place], [place] ELECTROENCEPHALOGRAM REPORT [id number] UNIT #: [id number] ROOM: DOCTOR: HASEEB YOU MD, JR DOS: 04/22/2018 FINDINGS: This 62-year-old woman on [place], Lyrica, baclofen, Prinivil, Dulera and meclizine. Display the following underlying rhythms-slightly disorganized, slightly asynchronous, 12 Hz, 20-30 microvolt alpha rhythms in both posterior regions. 20 Hz, 10 microvolt beta rhythms were noted in both precentral regions. There was only poor effort for hyperventilation, which produced no abnormalities. There was no driving to photic stimulation. There was symmetrical attenuation of the posterior alpha rhythms with eye opening. The patient did become drowsy, progressing uneventfully through stage I somnolence. Throughout this recording, there were no focal abnormalities or epileptiform discharges. IMPRESSION: 1. Normal awake and drowsy EEG. 2. The disorganized alpha rhythms in the posterior regions were likely the result of her medications, especially including [place] and Lyrica. Clinical correlation was highly advised. HASEEB YOU MD CM:EEG:ELECTROENCEPHALOGRAM REPORT [id number] HASEEB YOU MD, JR
== END | disposition home or self-care (01) ==
LOC: CP 01:38
DX: G40.A09 Absence epileptic syndrome, not intractable, without status epilepticus (principal)

== ENCOUNTER 2018-05-02 13:39 | Emergency (ER) | payer OTHER ==
[~2018-05-02] VITALS: Ht 160 cm; Wt 77.6 kg
--- NOTE | ~2018-05-02 | EKG ---
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
[~2018-05-02 13:39] MED LIST changes: -AVPAK AZITHROM250 MG PO; -MUCINEX1200 M1 PO; -PREDNISONE50 MG PO; -ZOFRAN4 MG PO
[2018-05-02 14:22] LABS: BASO # 0.1 10*3/uL (0.0-0.1); BASO % 0.4 % (0.0-1.0); EOS # 0.1 10*3/uL (0.0-0.4); EOS % 0.7 % (1.0-4.0); HEMATOCRIT 43.2 % (37.0-47.0); HEMOGLOBIN 14.7 g/dl (12.0-16.0); LYMPH # 3.6 10*3/uL (1.3-4.4); LYMPH % 31.4 % (27.0-41.0); MEAN CELL VOLUME 92.3 fl (81.0-99.0); MEAN CORPUSCULAR HGB 31.4 pg (27.0-31.0); MEAN PLATELET VOLUME 9.5 fl (9.6-12.3); MONO # 0.9 10*3/uL (0.1-1.0); NEUT # 6.8 10*3/uL (2.3-7.9); NEUT % 59.2 % (47.0-73.0); PLATELET COUNT AUTOMATED 406 10*3/uL (130-400); RED BLOOD COUNT 4.68 10*6/uL (4.10-5.10); RED CELL DISTRI WIDTH 15.3 % (0-14.5); WHITE BLOOD COUNT 11.4 10*3/uL (4.8-10.8)
[2018-05-02 14:44] LABS: ALBUMIN 3.7 gm/dl (3.1-4.5); ALKALINE PHOSPHATASE 86 U/L (45-117); BUN 16 mg/dl (7-24); CHLORIDE 108 mmol/L (98-107); CREATININE 0.93 mg/dL (0.55-1.02); LIPASE 160 U/L (73-393); POTASSIUM 3.6 mmol/L (3.5-5.1); SGOT/AST 20 IU/L (3-35); SGPT/ALT 30 U/L (12-78); SODIUM 141 mmol/L (136-145); TOTAL PROTEIN 7.8 gm/dL (6.4-8.2)
[2018-05-02 14:53] LABS: TROPONIN I < 0.015 ng/ml (<0.045)
[2018-05-02 14:57] LABS: BILIRUBIN NEGATIVE (NEGATIVE); BLOOD NEGATIVE (NEGATIVE); CLARITY CLEAR (CLEAR); COLOR YELLOW (YELLOW); GLUCOSE NEGATIVE (NEGATIVE); KETONE NEGATIVE (NEGATIVE); LEUKO ESTERASE NEGATIVE (NEGATIVE); NITRITE NEGATIVE (NEGATIVE); UROBILINOGEN 0.2 E.U./dl (0.2-1.0)
[2018-05-02 15:07] LABS: BACTERIA 2+; MUCOUS TRACE; RBC 0-2 rbc/hpf (0-2); WBC 0-2 wbc/hpf (0-5)
[2018-05-02 15:35] VITALS: BP 124/78
[2018-05-02] MEDS ORDERED: ZOFRAN4 MG PO (15:40)
== END 2018-05-02 16:20 | disposition home or self-care (01) ==
LOC: ED 13:39
PROVIDERS: Emergency Medicine
DX: R10.13 Epigastric pain (principal); R11.0 Nausea; R06.02 Shortness of breath; G89.29 Other chronic pain; J44.9 Chronic obstructive pulmonary disease, unspecified; I11.0 Hypertensive heart disease with heart failure; I50.30 Unspecified diastolic (congestive) heart failure; E11.40 Type 2 diabetes mellitus with diabetic neuropathy, unspecified; F17.200 Nicotine dependence, unspecified, uncomplicated; Z90.710 Acquired absence of both cervix and uterus; Z90.49 Acquired absence of other specified parts of digestive tract; Z91.030 Bee allergy status; Z88.0 Allergy status to penicillin; Z88.1 Allergy status to other antibiotic agents; Z91.040 Latex allergy status; Z79.2 Long term (current) use of antibiotics; Z79.899 Other long term (current) drug therapy

== ENCOUNTER 2018-05-30 18:41 | Emergency (ER) | payer OTHER ==
[~2018-05-30] VITALS: Ht 160 cm; Wt 81.6 kg
--- NOTE | ~2018-05-30 | EKG ---
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
[~2018-05-30 18:41] MED LIST changes: +ZOFRAN4 MG PO
[2018-05-30 19:17] LABS: HEMATOCRIT 42.9 % (37.0-47.0); MEAN CELL VOLUME 94.5 fl (81.0-99.0); MEAN CORPUSCULAR HGB 30.8 pg (27.0-31.0); MEAN CORPUSCULAR HGB CONC 32.6 g/dl (33.0-37.0); PLATELET COUNT AUTOMATED 329 10*3/uL (130-400); RED BLOOD COUNT 4.54 10*6/uL (4.10-5.10); RED CELL DISTRI WIDTH 14.8 % (0-14.5); WHITE BLOOD COUNT 7.3 10*3/uL (4.8-10.8)
[2018-05-30 19:28] LABS: ACT PARTIAL THROMBO TIME 23.8 SECONDS (20.8-31.5); INTERNATIONAL NORM RATIO 0.9 (2.0-3.5)
[2018-05-30 19:42] LABS: ATYPICAL LYMPHS 2 % (0-0); BASOPHILS 1 % (0-1); TOTAL CELLS COUNTED 100 #CELLS
[2018-05-30 19:43] LABS: PLATELET SUFFICIENCY NORMAL (NORMAL)
[2018-05-30 19:44] LABS: POLYCHROMASIA SLIGHT
[2018-05-30 19:55] LABS: ALBUMIN 3.3 gm/dl (3.1-4.5); ALKALINE PHOSPHATASE 86 U/L (45-117); BUN 19 mg/dl (7-24); CHLORIDE 108 mmol/L (98-107); CREATININE 0.85 mg/dL (0.55-1.02); LIPASE 124 U/L (73-393); POTASSIUM 3.4 mmol/L (3.5-5.1); SGOT/AST 23 IU/L (3-35); SGPT/ALT 30 U/L (12-78); SODIUM 141 mmol/L (136-145); TOTAL PROTEIN 7.4 gm/dL (6.4-8.2)
[2018-05-30 19:57] LABS: TROPONIN I < 0.015 ng/ml (<0.045)
[2018-05-30 21:15] VITALS: BP 107/66
[2018-05-30] MEDS ORDERED: PREDNISONE50 MG PO (21:19)
[2018-05-30] MEDS ORDERED: MUCINEX1200 M1 PO (21:19)
[2018-05-30] MEDS ORDERED: AVPAK AZITHROM250 MG PO (21:19)
== END 2018-05-30 21:15 | disposition home or self-care (01) ==
LOC: ED 18:41
PROVIDERS: Nurse Practitioner Family
DX: J06.9 Acute upper respiratory infection, unspecified (principal); J44.1 Chronic obstructive pulmonary disease with (acute) exacerbation; Z88.0 Allergy status to penicillin; Z88.1 Allergy status to other antibiotic agents; Z88.8 Allergy status to other drugs, medicaments and biological substances; Z91.030 Bee allergy status; Z79.899 Other long term (current) drug therapy; Z72.0 Tobacco use

== ENCOUNTER → 2018-07-30 | Outpatient (CLI) | payer OTHER ==
[~2018-07-30] MED LIST changes: +AVPAK AZITHROM250 MG PO; +MUCINEX1200 M1 PO; +PREDNISONE50 MG PO
[2018-07-30 10:53] LABS: BASO % 0.5 % (0.0-1.0); EOS # 0.1 10*3/uL (0.0-0.4); EOS % 1.2 % (1.0-4.0); HEMATOCRIT 46.6 % (37.0-47.0); HEMOGLOBIN 15.4 g/dl (12.0-16.0); LYMPH # 3.5 10*3/uL (1.3-4.4); MEAN CELL VOLUME 94.3 fl (81.0-99.0); MEAN CORPUSCULAR HGB 31.2 pg (27.0-31.0); MEAN PLATELET VOLUME 10.3 fl (9.6-12.3); MONO # 0.6 10*3/uL (0.1-1.0); MONO % 7.6 % (3.0-9.0); NEUT # 3.4 10*3/uL (2.3-7.9); NEUT % 44.6 % (47.0-73.0); PLATELET COUNT AUTOMATED 361 10*3/uL (130-400); RED BLOOD COUNT 4.94 10*6/uL (4.10-5.10); RED CELL DISTRI WIDTH 14.7 % (0-14.5); WHITE BLOOD COUNT 7.6 10*3/uL (4.8-10.8)
[2018-07-30 11:21] LABS: ALBUMIN 4.2 gm/dl (3.1-4.5); ALKALINE PHOSPHATASE 76 U/L (45-117); BUN 19 mg/dl (7-24); CHLORIDE 106 mmol/L (98-107); CREATININE 0.93 mg/dL (0.55-1.02); POTASSIUM 3.7 mmol/L (3.5-5.1); SGOT/AST 21 IU/L (3-35); SGPT/ALT 32 U/L (12-78); SODIUM 140 mmol/L (136-145); TOTAL PROTEIN 7.5 gm/dL (6.4-8.2)
== END | disposition home or self-care (01) ==
LOC: LAB 10:22
PROVIDERS: Internal Medicine
DX: E78.00 Pure hypercholesterolemia, unspecified (principal); R11.0 Nausea

== ENCOUNTER → 2019-01-12 | Outpatient (CLI) | payer OTHER ==
[~2019-01-12] MED LIST changes: +SEPTDS PO
[2019-01-12 10:48] LABS: BASO # 0.1 10*3/uL (0.0-0.1); BASO % 0.5 % (0.0-1.0); EOS # 0.1 10*3/uL (0.0-0.4); HEMATOCRIT 46.7 % (37.0-47.0); HEMOGLOBIN 15.2 g/dl (12.0-16.0); LYMPH # 3.6 10*3/uL (1.3-4.4); MEAN CELL VOLUME 93.2 fl (81.0-99.0); MEAN CORPUSCULAR HGB 30.3 pg (27.0-31.0); MEAN CORPUSCULAR HGB CONC 32.5 g/dl (33.0-37.0); MONO # 1.1 10*3/uL (0.1-1.0); MONO % 8.1 % (3.0-9.0); NEUT # 8.3 10*3/uL (2.3-7.9); PLATELET COUNT AUTOMATED 328 10*3/uL (130-400); RED BLOOD COUNT 5.01 10*6/uL (4.10-5.10); RED CELL DISTRI WIDTH 14.6 % (0-14.5); WHITE BLOOD COUNT 13.2 10*3/uL (4.8-10.8)
[2019-01-12 11:18] LABS: CREATININE 1.62 mg/dL (0.55-1.02); POTASSIUM 3.7 mmol/L (3.5-5.1); TOTAL PROTEIN 7.6 gm/dL (6.4-8.2)
[2019-01-12 11:26] LABS: THYROID STIM HORMONE (HS) 1.01 uIU/ml (0.358-4.75)
== END | disposition home or self-care (01) ==
LOC: LAB 10:32
PROVIDERS: Internal Medicine
DX: E78.00 Pure hypercholesterolemia, unspecified (principal); R73.09 Other abnormal glucose

== ENCOUNTER 2019-01-16 10:03 | Emergency (ER) | payer OTHER ==
[~2019-01-16] VITALS: Ht 160 cm; Wt 73.0 kg
[~2019-01-16 10:03] MED LIST changes: -SEPTDS PO
[2019-01-16 10:07] VITALS: BP 137/90
[2019-01-16 11:10] LABS: BASO # 0.1 10*3/uL (0.0-0.1); BASO % 0.6 % (0.0-1.0); EOS # 0.2 10*3/uL (0.0-0.4); EOS % 2.7 % (1.0-4.0); HEMATOCRIT 43.9 % (37.0-47.0); HEMOGLOBIN 14.5 g/dl (12.0-16.0); LYMPH # 4.1 10*3/uL (1.3-4.4); LYMPH % 47.9 % (27.0-41.0); MEAN CELL VOLUME 92.6 fl (81.0-99.0); MEAN CORPUSCULAR HGB 30.6 pg (27.0-31.0); MEAN PLATELET VOLUME 10.9 fl (9.6-12.3); MONO # 0.7 10*3/uL (0.1-1.0); MONO % 8.5 % (3.0-9.0); NEUT # 3.5 10*3/uL (2.3-7.9); NEUT % 40.2 % (47.0-73.0); PLATELET COUNT AUTOMATED 287 10*3/uL (130-400); RED BLOOD COUNT 4.74 10*6/uL (4.10-5.10); RED CELL DISTRI WIDTH 14.2 % (0-14.5); WHITE BLOOD COUNT 8.6 10*3/uL (4.8-10.8)
[2019-01-16 11:24] LABS: ALBUMIN 3.5 gm/dl (3.1-4.5); CREATININE 1.12 mg/dL (0.55-1.02); POTASSIUM 3.8 mmol/L (3.5-5.1); TOTAL PROTEIN 7.1 gm/dL (6.4-8.2)
[2019-01-16 13:23] LABS: BILIRUBIN NEGATIVE (NEGATIVE); BLOOD NEGATIVE (NEGATIVE); CLARITY CLOUDY (CLEAR); COLOR YELLOW (YELLOW); GLUCOSE NEGATIVE (NEGATIVE); KETONE NEGATIVE (NEGATIVE); LEUKO ESTERASE NEGATIVE (NEGATIVE); NITRITE POSITIVE (NEGATIVE); UROBILINOGEN 0.2 E.U./dl (0.2-1.0)
[2019-01-16 13:34] LABS: URINE AMPHETAMINES < 1000 (1000ng/ml); URINE BARBITURATES < 200 (200ng/ml); URINE BENZODIAZEPINES < 200 (200ng/ml); URINE CANNABINOIDS (THC) < 50 (50ng/ml); URINE COCAINE > 300 (300ng/ml); URINE METHADONE < 300 (300ng/ml); URINE OPIATES > 300 (300ng/ml)
[2019-01-16 13:36] LABS: BACTERIA 4+; WBC 41-50 wbc/hpf (0-5)
[2019-01-16 13:37] LABS: URINE PHENCYCLIDINE < 25 (25ng/ml)
[2019-01-16] MEDS ORDERED: SEPTDS PO (14:01)
== END 2019-01-16 14:04 | disposition home or self-care (01) ==
LOC: ED 10:03
PROVIDERS: Emergency Medicine
DX: N39.0 Urinary tract infection, site not specified (principal); R20.0 Anesthesia of skin; R41.0 Disorientation, unspecified; R26.2 Difficulty in walking, not elsewhere classified; J44.9 Chronic obstructive pulmonary disease, unspecified; I50.9 Heart failure, unspecified; I11.0 Hypertensive heart disease with heart failure; E11.42 Type 2 diabetes mellitus with diabetic polyneuropathy; F17.200 Nicotine dependence, unspecified, uncomplicated; Z79.899 Other long term (current) drug therapy; Z88.0 Allergy status to penicillin; Z88.1 Allergy status to other antibiotic agents; Z91.013 Allergy to seafood; Z91.040 Latex allergy status; Z88.8 Allergy status to other drugs, medicaments and biological substances; Z91.030 Bee allergy status

== ENCOUNTER → 2019-02-09 | Outpatient (CLI) | payer OTHER ==
[~2019-02-09] MED LIST changes: +SEPTDS PO
[2019-02-09 12:07] LABS: BUN 23 mg/dl (7-24); CHLORIDE 112 mmol/L (98-107); CREATININE 0.93 mg/dL (0.55-1.02); POTASSIUM 3.4 mmol/L (3.5-5.1); SODIUM 144 mmol/L (136-145)
== END | disposition home or self-care (01) ==
LOC: LAB 11:20
PROVIDERS: Internal Medicine
DX: N17.9 Acute kidney failure, unspecified (principal)

== ENCOUNTER → 2020-05-16 | Outpatient (CLI) | payer OTHER ==
[2020-05-16 08:40] LABS: BASO # 0.1 10*3/uL (0.0-0.1); BASO % 0.5 % (0.0-1.0); EOS # 0.2 10*3/uL (0.0-0.4); EOS % 1.4 % (1.0-4.0); HEMATOCRIT 32.5 % (37.0-47.0); LYMPH # 4.1 10*3/uL (1.3-4.4); LYMPH % 37.1 % (27.0-41.0); MEAN CELL VOLUME 72.2 fl (81.0-99.0); MEAN CORPUSCULAR HGB CONC 27.7 g/dl (33.0-37.0); MEAN PLATELET VOLUME 8.7 fl (9.6-12.3); MONO % 8.6 % (3.0-9.0); NEUT # 5.8 10*3/uL (2.3-7.9); PLATELET COUNT AUTOMATED 473 10*3/uL (130-400); RED CELL DISTRI WIDTH 22.5 % (0-14.5); WHITE BLOOD COUNT 11.1 10*3/uL (4.8-10.8)
[2020-05-16 09:11] LABS: ALBUMIN 3.1 gm/dl (3.1-4.5); ALKALINE PHOSPHATASE 85 U/L (45-117); BUN 12 mg/dl (7-24); CHLORIDE 113 mmol/L (98-107); HDL CHOLESTEROL 48 mg/dl (40-60); POTASSIUM 4.2 mmol/L (3.5-5.1); SGOT/AST 13 IU/L (3-35); SGPT/ALT 16 U/L (12-78); SODIUM 143 mmol/L (136-145); TOTAL PROTEIN 7.2 gm/dL (6.4-8.2); TRIGLYCERIDES 228 mg/dl (<150); VLDL CHOLESTEROL 46 mg/dL (6-40)
[2020-05-16 09:20] LABS: CHOLESTEROL 198 mg/dL (<200); LDL CHOLESTEROL 104 mg/dL (9-159)
== END | disposition home or self-care (01) ==
LOC: LAB 08:04
PROVIDERS: ATTEND Internal Medicine
DX: Z12.11 Encounter for screening for malignant neoplasm of colon (principal); E78.00 Pure hypercholesterolemia, unspecified; R73.09 Other abnormal glucose

== ENCOUNTER → 2020-09-15 | Outpatient (CLI) | payer OTHER ==
[2020-09-15 12:09] LABS: BASO % 0.5 % (0.0-1.0); EOS # 0.1 10*3/uL (0.0-0.4); EOS % 1.2 % (1.0-4.0); HEMATOCRIT 45.4 % (37.0-47.0); LYMPH # 2.7 10*3/uL (1.3-4.4); LYMPH % 30.7 % (27.0-41.0); MEAN CELL VOLUME 90.3 fl (81.0-99.0); MEAN CORPUSCULAR HGB 28.6 pg (27.0-31.0); MEAN CORPUSCULAR HGB CONC 31.7 g/dl (33.0-37.0); MEAN PLATELET VOLUME 9.4 fl (9.6-12.3); MONO # 0.8 10*3/uL (0.1-1.0); MONO % 8.4 % (3.0-9.0); NEUT # 5.2 10*3/uL (2.3-7.9); NEUT % 58.7 % (47.0-73.0); PLATELET COUNT AUTOMATED 328 10*3/uL (130-400); RED BLOOD COUNT 5.03 10*6/uL (4.10-5.10); RED CELL DISTRI WIDTH 20.8 % (0-14.5); WHITE BLOOD COUNT 8.9 10*3/uL (4.8-10.8)
== END | disposition home or self-care (01) ==
LOC: LAB 11:38
PROVIDERS: ATTEND Internal Medicine
DX: D50.9 Iron deficiency anemia, unspecified (principal)

== ENCOUNTER 2020-10-23 23:31 | Emergency (ER) | payer OTHER ==
[~2020-10-23] VITALS: Ht 167.6 cm; Wt 77.5 kg
[2020-10-23 23:36] VITALS: BP 000/00
== END 2020-10-24 01:48 ==
LOC: ED 23:31
DX: I46.9 Cardiac arrest, cause unspecified (principal); Z91.030 Bee allergy status; Z88.0 Allergy status to penicillin; Z88.1 Allergy status to other antibiotic agents; Z91.040 Latex allergy status; Z88.8 Allergy status to other drugs, medicaments and biological substances; Z79.899 Other long term (current) drug therapy